=== PATIENT | female | born 1940 | race Caucasian/White ===

== ENCOUNTER → 2016-06-17 | Outpatient (CLI) | payer OTHER ==
[~2016-06-17] MED LIST: ASPI-435 PO; CALC-354 PO; FENO1TAB25 PO; GLC500 PO; LEVO75TA5 PO; LISI40TA PO; LPT/40 PO; METF1TAB53 PO; NVLGI7030 SC; VTMB12 PO; [UNRECOGNIZED DRUG - CODE] PO
--- NOTE | 2016-06-18 12:41 | MAMMOGRAPHY REPORT ---
BILATERAL DIGITAL SCREENING MAMMOGRAM WITH CAD: 06/17/2016 CLINICAL HISTORY: Routine screening. Patient has no complaints. TECHNIQUE: Bilateral CC and MLO views were obtained. Current study was also evaluated with a Comput er Aided Detection (CAD) system. COMPARISON: Comparison is made to exams dated: 06/14/2015 mammogram, 06/13/2014 mammogram, 06/10/2013 darling mogram, 06/08/2012 mammogram, 06/05/2011 mammogram, and 06/04/2010 mammogram - [facility]. BREAST COMPOSITION: There are scattered areas of fibroglandular density in both breasts. FINDINGS: There are scattered benign calcifications and diffuse bilateral rodlike secretory calcific ations. No suspicious mass, architectural distortion or cluster of suspicious microcalcifications i s seen. IMPRESSION: ACR BI-RADS CATEGORY 1: NEGATIVE There is no mammographic evidence of malignancy. A 1 year screening mammogram is recommended. The p atient will receive written notification of the results. Approximately 10% of breast cancers are not detected with mammography. A negative mammographic repor t should not delay biopsy if a clinically suggestive mass is present. Ana Aguilar M.D. ay/:06/17/2016 15:21:13 Waiter/Waitress Second Class: Janeth Santos, [facility] letter sent: Normal 1/2 BI-RADS Code: ACR BI-RADS Category 1: Negative
== END | disposition home or self-care (01) ==
LOC: C.MAMM 10:23
PROVIDERS: ATTEND Obstetrics & Gynecology
DX: Z12.31 Encounter for screening mammogram for malignant neoplasm of breast (principal)

== ENCOUNTER → 2016-11-29 | Outpatient (CLI) | payer OTHER ==
[2016-11-29 12:20] LABS: HEMATOCRIT 43.8 % (37-47); MEAN CELL VOLUME 87.1 fL (80-100); MEAN CORPUSCULAR HEMOGLOBIN 29.4 pg (25-34); MEAN CORPUSCULAR HGB CONC 33.8 g/dl (32-36); PLATELET COUNT 202 K/uL (130-400); RED BLOOD COUNT 5.03 M/uL (4.2-5.4); WHITE BLOOD COUNT 6.14 K/uL (4.8-10.8)
[2016-11-29 12:56] LABS: ESTIMATED AVERAGE GLUCOSE 209 mg/dl; HA1C FLAG Normal (Normal)
[2016-11-29 13:38] LABS: ALT/SGPT 70 U/L (12-78); BLOOD UREA NITROGEN 13 mg/dl (7-18); BUN/CREATININE RATIO 13.7 (10-20); CALCIUM 9.1 mg/dl (8.5-10.1); CARBON DIOXIDE 23 mmol/L (21-32); CHLORIDE 107 mmol/L (98-107); CHOLESTEROL 118 mg/dl (0-200); CREATININE 0.98 mg/dl (0.60-1.20); GLUCOSE 200 mg/dl (70-99); SODIUM 141 mmol/L (136-145)
[2016-11-29 13:49] LABS: ALB/GLOB RATIO 1.1 (0.9-2); ALKALINE PHOSPHATASE 56 U/L (45-117); AST/SGOT 51 U/L (15-37); CHOLESTEROL/HDL RATIO 3.6; HDL CHOLESTEROL 33 mg/dl; LDL CHOLESTEROL CALCULATED 41 mg/dl; TRIGLYCERIDES 219 mg/dl (0-150); VERY LOW DENSITY LIPOPROT CALC 44 mg/dl
== END ==
LOC: C.LABBFT 07:43
PROVIDERS: ATTEND Internal Medicine
DX: E11.65 Type 2 diabetes mellitus with hyperglycemia (principal)

== ENCOUNTER → 2017-04-29 | Outpatient (CLI) | payer OTHER ==
[2017-04-29 12:53] LABS: MEAN CELL VOLUME 87.8 fL (80-100); MEAN CORPUSCULAR HEMOGLOBIN 29.4 pg (25-34); MEAN CORPUSCULAR HGB CONC 33.5 g/dl (32-36); MEAN PLATELET VOLUME 12.6 fL (7.4-10.4); PLATELET COUNT 202 K/uL (130-400); WHITE BLOOD COUNT 6.89 K/uL (4.8-10.8)
[2017-04-29 13:34] LABS: ALT/SGPT 65 U/L (12-78); AST/SGOT 55 U/L (15-37); BLOOD UREA NITROGEN 18 mg/dl (7-18); CALCIUM 9.8 mg/dl (8.5-10.1); CARBON DIOXIDE 23 mmol/L (21-32); CHLORIDE 103 mmol/L (98-107); CREATININE 1.01 mg/dl (0.60-1.20); GLUCOSE 200 mg/dl (70-99); POTASSIUM 4.1 mmol/L (3.5-5.1); SODIUM 137 mmol/L (136-145)
[2017-04-29 13:49] LABS: ALKALINE PHOSPHATASE 52 U/L (45-117); CHOLESTEROL 105 mg/dl (0-200); CHOLESTEROL/HDL RATIO 3.5; HDL CHOLESTEROL 30 mg/dl; LDL CHOLESTEROL CALCULATED 42 mg/dl; TRIGLYCERIDES 167 mg/dl (0-150); VERY LOW DENSITY LIPOPROT CALC 33 mg/dl
== END | disposition home or self-care (01) ==
LOC: C.LABBFT 07:29
PROVIDERS: ATTEND Internal Medicine
DX: E78.5 Hyperlipidemia, unspecified (principal); E03.9 Hypothyroidism, unspecified

== ENCOUNTER → 2017-06-19 | Outpatient (CLI) | payer OTHER ==
--- NOTE | 2017-06-19 14:39 | MAMMOGRAPHY REPORT ---
BILATERAL DIGITAL SCREENING MAMMOGRAM TOMOSYNTHESIS WITH CAD: 06/19/2017 CLINICAL HISTORY: Routine screening. Patient has no complaints. TECHNIQUE: Breast tomosynthesis in addition to standard 2D mammography was performed. Current study was also evaluated with a Computer Aided Detection (CAD) system. COMPARISON: Comparison is made to exams dated: 06/17/2016 mammogram, 06/14/2015 mammogram, 06/13/2014 mamm ogram, 06/10/2013 mammogram, 06/08/2012 mammogram, and 06/05/2011 mammogram - [facility]. BREAST COMPOSITION: There are scattered areas of fibroglandular density in both breasts. FINDINGS: No suspicious masses, calcifications, or areas of architectural distortion are noted in ei ther breast. There has been no significant interval change compared to prior exams. Scattered bilater al benign-appearing calcifications are not significantly changed. Bilateral asymmetries are stable. IMPRESSION: ACR BI-RADS CATEGORY 2: BENIGN There is no mammographic evidence of malignancy. A 1 year screening mammogram is recommended. The pa tient will receive written notification of the results. Approximately 10% of breast cancers are not detected with mammography. A negative mammographic report should not delay biopsy if a clinically suggestive mass is present. Emelia Hernandez M.D. /:06/19/2017 12:34:35 Lace Mender: Georgina RIVERA)(Bela), [facility] letter sent: Normal 1/2 BI-RADS Code: ACR BI-RADS Category 2: Benign
== END | disposition home or self-care (01) ==
LOC: C.MAMM 09:59
PROVIDERS: ATTEND Obstetrics & Gynecology
DX: Z12.31 Encounter for screening mammogram for malignant neoplasm of breast (principal)

== ENCOUNTER → 2017-10-08 | Outpatient (CLI) | payer OTHER ==
[2017-10-08 12:29] LABS: HEMOGLOBIN A1C 7.7 % (4.5-5.6)
== END | disposition home or self-care (01) ==
LOC: C.LABBFT 07:14
PROVIDERS: ATTEND Internal Medicine Endocrinology, Diabetes & Metabolism
DX: E06.3 Autoimmune thyroiditis (principal); E11.9 Type 2 diabetes mellitus without complications; E55.9 Vitamin D deficiency, unspecified

== ENCOUNTER 2019-09-06 07:53 | Inpatient (IN) ==
--- NOTE | 2019-08-06 10:05 | Anesthesiology Consultation ---
Date of Service August 06, 2019 Assessment & Plan (1) Encounter for pre-operative examination: - Check BSG AM DOS Chart Review Chart Review: Acceptable Risk for Surgery and Patient NOT seen in Pre Admission Testing History Surgery Operation Date: 08/30/19 08:20 Proposed Procedures p Left Breast Lumpectomy with Needle Localization and Left [place] Lymph Node Biopsy - Emanuel Grijalva MD, FACS Height/Weight Height: 5 ft 3 in Weight: 59.421 kg Allergies Allergy/AdvReac Type Severity Reaction Status Date / Time No Known Allergies Allergy Verified 08/02/19 12:01 Medications Home Medications Medication Instructions Recorded Confirmed Last Taken lancets 33 gauge #100 ea 11/16/18 07/28/19 Unknown insulin aspart U-100 100 unit/mL See Rx Instructions .ROUTE 12/23/18 08/02/19 Unknown (3 mL) subcutaneous pen .COMPLEX #15 ml MDD 25 units aspirin 81 mg tablet,delayed 81 mg PO DAILY 02/21/19 08/02/19 Unknown release pen needle, diabetic 32 gauge x #100 ea 03/08/19 07/28/19 Unknown 5/32" atorvastatin 40 mg tablet 40 mg PO HS #90 tab 06/17/19 08/02/19 Unknown levothyroxine 75 mcg tablet 75 mcg PO DAILY #90 tab 06/17/19 08/02/19 Unknown lisinopril 40 mg tablet 40 mg PO DAILY #90 tab 06/17/19 08/02/19 Unknown metformin 1,000 mg tablet 1,000 mg PO DAILY #90 tab 06/17/19 08/02/19 Unknown blood sugar diagnostic See Rx Instructions .ROUTE 06/30/19 08/02/19 Unknown .COMPLEX #50 strip calcium carbonate-vitamin D3 1 tab PO BID 08/02/19 08/02/19 Unknown [Caltrate 600 plus D] chlorthalidone 25 mg tablet 12.5 mg PO QAM #15 tab 08/02/19 Unknown cholecalciferol (vitamin D3) 2,000 unit PO DAILY 08/02/19 08/02/19 Unknown [Vitamin D3] cyanocobalamin (vitamin B-12) 500 mcg PO DAILY 08/02/19 08/02/19 Unknown [Vitamin B-12] dulaglutide [Trulicity] 1.5 mg SQ WK 08/02/19 08/02/19 Unknown fenofibrate nanocrystallized 48 mg PO DAILY 08/02/19 08/02/19 Unknown [Tricor] insulin aspart U-100 [Novolog 5 unit SUBCUT QAM 08/02/19 08/02/19 Unknown Flexpen U-100 Insulin] insulin aspart U-100 [Novolog 10 unit SUBCUT QDD 08/02/19 08/02/19 Unknown Flexpen U-100 Insulin] insulin aspart U-100 [Novolog 10 unit SUBCUT QDL 08/02/19 08/02/19 Unknown Flexpen U-100 Insulin] insulin degludec [Tresiba 25 units SQ HS 08/02/19 08/02/19 Unknown FlexTouch U-100] metformin 500 mg PO DAILY 08/02/19 08/02/19 Unknown psyllium [Fiber Smooth] 2 tsp PO DAILY 08/02/19 08/02/19 Unknown sennosides [senna] 8.6 mg PO HS 08/02/19 08/02/19 Unknown Past Medical History Medical History Anxiety situational Breast cancer left Diabetes mellitus type 2, controlled IDDM Diverticulosis Dyslipidemia Essential (primary) hypertension Sergio's thyroiditis Hypothyroidism Past Family History Family History Brother COPD (chronic obstructive pulmonary disease) Diabetes Tobacco use Father Diabetes Epilepsy Prostate cancer Mother Glaucoma Hypertension Stroke syndrome Denies family history of Ovarian cancer Myocardial infarction Breast cancer Lung cancer Colorectal cancer Past Surgical History Surgical History H/O colonoscopy 11/16/2015 H/O wisdom tooth extraction History of breast biopsy left Social History Smoking Status: Never smoker Do You Dip or Chew Tobacco: No Hx Alcohol Use: No Hx Substance Use: No substance use type: does not use Testing Laboratory Results 08/03/19 WBC 9.96 H/H 13.8/41.9 PLATELETS 297 SODIUM 139 POTASSIUM 3.9 CHLORIDE 108 CO2 25 BUN 30 CREATININE 1.24 GLUCOSE 105 TSH 0.538 HGBA1C 6.4% Electrocardiogram Date: 08/04/19 SR with first degree AVB at 82bpm.
[~2019-09-06 07:53] MED LIST changes: -ASPI-435 PO; -CALC-354 PO; +CEFAZOLIN 2000MG 2,000 MG/15 ML SYR IV SCH; +DEXAMETHASONE SOD INJ 4 MG/ML VIAL ONE; -FENO1TAB25 PO; -GLC500 PO; -LEVO75TA5 PO; +LIDOCAINE HCL 2% 2 ML VIAL/AMP(20MG/ML) INFIL ONE; -LISI40TA PO; -LPT/40 PO; +LR 15ML/HR IV SCH; -METF1TAB53 PO; +MIDAZOLAM HCL 1 MG/ML 2ML VIAL ONE; -NVLGI7030 SC; +ONDANSETRON INJ 2 MG/ML 2 ML VIAL ONE; +PROPOFOL IV EMULSION 10 MG/ML 20 ML VIAL IV ONE; +ROCURONIUM BROMIDE 10 MG/ML 5 ML VIAL ONE; -VTMB12 PO; -[UNRECOGNIZED DRUG - CODE] PO; +fentaNYL citrate 100 MCG/2 ML VIAL ONE
--- NOTE | 2019-09-06 08:49 | History & Physical Bridge Note ---
Date of Service September 06, 2019 History & Physical Bridge Note I have examined the patient, reviewed the History & Physical and in the interval since the performance of the History & Physical I have noted the following changes of clinical significance: no changes noted
[2019-09-06] MEDS ORDERED: METHYLENE BLUE 0.5% 10 ML VIAL ONE (09:22)
[2019-09-06] MEDS ORDERED: BUPIVACAINE 0.5 % 5 MG/1 ML MPF 30ML VIAL ONE (09:22)
--- NOTE | 2019-09-06 09:49 | Nuclear Medicine Report ---
NM sentinel node inject only CLINICAL HISTORY: LEFT BREAST-INJECTION ONLY left breast carcinoma. COMPARISON STUDY: No previous studies for comparison. FINDINGS: A timeout was performed. Five periareolar intradermal injections were performed utilizing a total dose of 0.35 mCi technetium 99m Lymphoseek. The patient was sent to the operating room for intraoperative localization. IMPRESSION: Left breast lymphoscintigraphy was performed. ACT 112: Negative or not required by law. Electronically signed by: Imer Yu M.D. 09/06/2019 9:48 AM
[2019-09-06] MEDS ORDERED: PROMETHAZINE HCL 12.5 MG in SODIUM CHLORIDE 0.9% 50 ML IV PRN ×2 (09:59→13:22)
[2019-09-06] MEDS ORDERED: ePHEDrine sulfate 50 MG/ML AMP IV PRN (09:59)
[2019-09-06] MEDS ORDERED: fentaNYL citrate 100 MCG/2 ML VIAL IV PRN (09:59)
[2019-09-06] MEDS ORDERED: METOCLOPRAMIDE HCL INJ 5 MG/ML 2 ML VIAL IV PRN (09:59)
[2019-09-06] MEDS ORDERED: ATROPINE SULFATE 0.1 MG/ML 10ML SYR IV PRN (09:59)
[2019-09-06] MEDS ORDERED: ONDANSETRON INJ 2 MG/ML 2 ML VIAL IV PRN ×2 (09:59→13:22)
--- NOTE | 2019-09-06 11:29 | Post Operative Brief Note ---
PG Immediate Post Op with CF Date of Surgery September 06, 2019 Pre & Post Diagnosis Operation Date: 09/06/19 09:30 Pre-Op Diagnosis: Left Breast Lobular Cancer Post-Op Diagnosis: Left Breast Lobular Cancer I identified the patient and participated in the time-out.: Yes Procedure Operation Date: 09/06/19 09:30 Actual Procedures p Left Breast Mastectomy with [place] Lymph Node Biopsy (Injection Only)(Left) - Emanuel Grijalva MD, FACS Surgeon Emanuel Grijalva MD, FACS Precise Winder Stephy Null Estimated Blood Loss 10 Findings Consistent with Post-Op Diagnosis Specimens Specimen Description: A. Left [place] Lymph Node B. Left Breast Tissue Silk Lateral Drains [place] Drain
[2019-09-06] MEDS ORDERED: ACETAMINOPHEN 1,000 MG/100 ML VIAL IV ONE (11:30)
--- NOTE | 2019-09-06 11:48 | Operative Report (OR) ---
DATE OF OPERATION: 09/06/2019 NAME OF OPERATION: Left mastectomy with sentinel lymph node biopsy. PREOPERATIVE DIAGNOSIS: Left breast cancer. POSTOPERATIVE DIAGNOSIS: Left breast cancer. STAFF SURGEON: Emanuel Grijalva MD. PROVIDER RELATIONS SPECIALIST: Promise Null PA-C ANESTHESIA: General. DESCRIPTION OF PROCEDURE: The patient was brought in the operating room and placed on the operating table in supine position. Her left chest was prepped and draped in usual fashion. My medical staff assistant helped with prepping, draping, excision of the breast tissue and lymph node and closure of the wounds. Initially, an incision was made in the left axilla using a Neoprobe identifying sentinel lymph node, which was sent for frozen section. Frozen section was negative. During the frozen section, we did perform left mastectomy incising the breast from sternum to axilla in an elliptical fashion constructing superior and inferior breast flaps, dissecting the breast tissue away from the subcutaneous tissue down to the pectoralis muscle. Then, the breast tissue taken off the pectoralis muscle, taking the fascia. The breast was marked with a silk suture lateral. At this point, a #15 round [place] drain was placed into the chest wound, secured to skin using 3-0 nylon suture. The axillary incision closed using 2-0 plain for the deep tissue and 4-0 nylon for the skin. Her chest wound was closed with a subcutaneous 3-0 Vicryl and then subcuticular 4-0 Monocryl with Steri-Strips. Dressing applied and the patient was transferred to recovery room in stable condition. I attest to the content of the Intraoperative Record and any orders documented therein. Any exception s are noted below.
[2019-09-06] MEDS ORDERED: MoRPHine SULFATE 2 MG/ML CARP IV PRN ×2 (13:22)
[2019-09-06] MEDS ORDERED: ACETAMINOPHEN 325 MG TAB PO PRN (13:22)
[2019-09-06] MEDS ORDERED: HYDROCODONE/ACETAMOPHEN 5/325MG TAB PO PRN ×2 (13:22)
[2019-09-06] MEDS ORDERED: SENNA 8.8 MG/5 ML UDP PO PRN (13:22)
--- NOTE | 2019-09-06 13:37 | Anesthesiology Progress Note ---
Date of Service September 06, 2019 Anesthesia Post Procedure Vital Signs Vital Signs: Temp Pulse Pulse Resp BP BP Pulse Ox 09/06/19 13:25 76 18 161/81 H 96 09/06/19 12:50 81 21 150/82 H 97 09/06/19 12:40 78 18 144/85 H 96 09/06/19 12:30 36.6 C 77 15 143/80 H 96 09/06/19 12:20 79 17 157/85 H 97 09/06/19 12:10 73 13 158/90 H 98 09/06/19 12:00 74 12 154/85 H 96 09/06/19 11:51 36.7 C 77 18 148/94 H 100 09/06/19 09:39 36.7 C 90 20 172/92 H 94 Transfer of Care Handoff Completed per policy Notes Mental Status: alert / awake / arousable and participated in evaluation Patient Amnestic to Procedure: Yes Nausea / Vomiting: adequately controlled Pain: adequately controlled Airway Patency, RR, SpO2: stable & adequate BP & HR: stable & adequate Hydration State: stable & adequate Anesthetic Complications: no major complications apparent
[2019-09-06] MEDS ORDERED: SODIUM CHLORIDE 0.9% 1000ML 1,000 ML IV SCH (14:00)
[2019-09-06] MEDS ORDERED: GLUCAGON FOR INJ 1 MG VIAL SQ PRN (14:45)
[2019-09-06] MEDS ORDERED: GLUCOSE 10 TABS/TUBE PO PRN (14:45)
[2019-09-06] MEDS ORDERED: DEXTROSE 50% 50 ML SYRINGE IV PRN (14:45)
[2019-09-06] MEDS ORDERED: CARBOHYDRATES FOR HYPOGLYCEMIA PO PRN (14:45)
[2019-09-06] MEDS ORDERED: GLUCOSE 40% GEL 15 GM TUBE PO PRN (14:45)
[2019-09-06] MEDS: INSULIN ASPART 100 UNITS/ML 3 ML PEN SC SCH ×2 (17:29→20:59)
[2019-09-06] MEDS: CEFAZOLIN 1000MG 1,000 MG/7.5 ML SYR IV SCH (17:57)
--- NOTE | 2019-09-06 19:27 | Hospitalist Consultation ---
Date of Consultation September 06, 2019 Assessment & Plan (1) Breast cancer: s/p L mastectomy with Dr. Grijalva on 09/05 DVT proph, diet as per gen surg Pre-op Hb 13.8 (2) Type 2 diabetes mellitus, with long-term current use of insulin: SSI PRN Holding home meds until reliable PO A1c 6.4 (3) Hypothyroidism: continue home meds (4) Hypertension: continue home meds (5) Dyslipidemia: continue home meds (6) DVT prophylaxis: as per ortho Takes 81mg at baseline for prevention only, no hx of CVA/UT Has been on hold x5d History of Present Illness Attending Physician: Emanuel Grijalva MD, FACS History of Present Illness 78 y/o F who was admitted on 09/05 s/p L mastectomy with Dr. Grijalva. Pt is doing well post-op. Tolerating PO without issue. Pt denies fever, SOB, chest pain, abd pain, n/v/c/d, LE pain or swelling. Some pain related to incision site but manageable. Allergies Allergy/AdvReac Type Severity Reaction Status Date / Time No Known Allergies Allergy Verified 09/06/19 08:55 Home Medications Home Medications Medication Instructions Recorded Confirmed Type lancets 33 gauge #100 ea 11/16/18 07/28/19 Rx insulin aspart U-100 100 unit/mL See Rx Instructions .ROUTE 12/23/18 09/06/19 Rx (3 mL) subcutaneous pen .COMPLEX #15 ml MDD 25 units aspirin 81 mg tablet,delayed 81 mg PO DAILY 02/21/19 09/06/19 History release pen needle, diabetic 32 gauge x #100 ea 03/08/19 07/28/19 Rx 5/32" atorvastatin 40 mg tablet 40 mg PO HS #90 tab 06/17/19 09/06/19 Rx levothyroxine 75 mcg tablet 75 mcg PO DAILY #90 tab 06/17/19 09/06/19 Rx lisinopril 40 mg tablet 40 mg PO DAILY #90 tab 06/17/19 09/06/19 Rx metformin 1,000 mg tablet 1,000 mg PO DAILY #90 tab 06/17/19 09/06/19 Rx calcium carbonate-vitamin D3 1 tab PO BID 08/02/19 09/06/19 History [Caltrate 600 plus D] chlorthalidone 25 mg tablet 12.5 mg PO QAM #15 tab 08/02/19 09/06/19 Rx cholecalciferol (vitamin D3) 2,000 unit PO DAILY 08/02/19 09/06/19 History [Vitamin D3] cyanocobalamin (vitamin B-12) 500 mcg PO DAILY 08/02/19 09/06/19 History [Vitamin B-12] dulaglutide [Trulicity] 1.5 mg SQ WK 08/02/19 09/06/19 History fenofibrate nanocrystallized 48 mg PO DAILY 08/02/19 09/06/19 History [Tricor] insulin degludec [Tresiba 25 units SQ HS 08/02/19 09/06/19 History FlexTouch U-100] metformin 500 mg PO DAILY 08/02/19 09/06/19 History psyllium [Fiber Smooth] 2 tsp PO DAILY 08/02/19 09/06/19 History sennosides [senna] 8.6 mg PO HS 08/02/19 09/06/19 History blood sugar diagnostic See Rx Instructions .ROUTE 08/16/19 09/06/19 Rx .COMPLEX #50 strip Patient History Medical History Anxiety situational Breast cancer left Diabetes mellitus type 2, controlled IDDM Diverticulosis Dyslipidemia Essential (primary) hypertension Sergio's thyroiditis Hypothyroidism Surgical History H/O colonoscopy 11/16/2015 H/O wisdom tooth extraction History of breast biopsy left S/P mastectomy (09/06/19) Left Breast Mastectomy with [place] Lymph Node Biopsy Dr. 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 Beliefs That Will Affect Care: None marital status: Single Current Living Situation: Alone current occupational status: employed Other Information That Helps Us Care for You: No Feels Safe at Home: Yes Safety Concerns: Feels Safe At This Time Smoking Status: Never smoker Do You Dip or Chew Tobacco: No ; Second Hand Exposure: Yes (hx) ; Tobacco Cessation Education Requested by Patient: No Hx Alcohol Use: Yes Alcohol Intake Frequency: Weekly Hx Substance Use: No Dental Care, Regularly: Yes Physical Activity Frequency: Daily Seatbelt Use: always Sunscreen Use: Yes Review of Systems Review of Systems: Pertinent positives and negatives reviewed in HPI--all others negative Physical Exam Constitutional: WD/WN, vitals as above Eyes: normal visual samayoa by confrontation and + anicteric sclerae Neck: normal visual inspection and trachea midline Respiratory: normal respiratory effort, lungs clear to auscultation Cardiovascular: Rate/Rhythm: regular rate and regular rhythm Gastrointestinal (Abdomen): Inspection/Auscultation: abdomen not distended Percussion/Palpation: abdomen soft; abdomen nontender Musculoskeletal: Head/Neck/Chest: normocephalic and head atraumatic negative for edema, peripheral pulses intact Skin: no rashes, warm and dry Neurologic: awake; not confused Speech / Cognition: normal speech Psychiatric: A+Ox3, euthymic affect Results & Data Results & Data ([facility]) Vital Signs (Past 12 Hours) Vital Signs Temp Pulse Pulse Resp BP BP Pulse Ox 09/06/19 19:07 36.6 C 93 H 18 156/76 H 96 09/06/19 16:11 36.8 C 82 18 153/73 H 94 09/06/19 15:10 36.5 C 85 16 165/85 H 97 09/06/19 14:07 82 18 171/88 H 99 09/06/19 13:25 76 18 161/81 H 96 09/06/19 12:50 81 21 150/82 H 97 09/06/19 12:40 78 18 144/85 H 96 09/06/19 12:30 36.6 C 77 15 143/80 H 96 09/06/19 12:20 79 17 157/85 H 97 09/06/19 12:10 73 13 158/90 H 98 09/06/19 12:00 74 12 154/85 H 96 09/06/19 11:51 36.7 C 77 18 148/94 H 100 09/06/19 09:39 36.7 C 90 20 172/92 H 94 PG Care Time/CCT Total # of Minutes Spent Total Time Spent with Patient: Total time spent is greater than 50% in coordination of care (as documented) at patient's floor/unit and/or counseling patient: Coding Level of Care Code 20688 Inpt Consult Level 4 Diagnoses Breast cancer C50.919 Type 2 diabetes mellitus, with long-term current use of insulin E11.9; Z79.4 Hypothyroidism E03.9 Hypertension I10 Dyslipidemia E78.5 DVT prophylaxis Z29.9
[2019-09-06] MEDS: ATORVASTATIN 40 MG TAB PO SCH (20:58)
[2019-09-07] MEDS: CEFAZOLIN 1000MG 1,000 MG/7.5 ML SYR IV SCH ×3 (01:54→20:46)
[2019-09-07] MEDS: LEVOTHYROXINE SODIUM 75 MCG TABLET PO SCH (06:21)
--- NOTE | 2019-09-07 06:23 | Surgery Progress Note ---
Date of Service September 07, 2019 Assessment & Plan (1) H/O mastectomy: doing well drain expected no evidence of acute bleeding wound care plan for d/c tomorrow- visiting nurse- pt lives alone Results & Data Vital Signs (Past 12 Hours) Vital Signs Temp Pulse Resp BP BP Pulse Ox 09/07/19 03:54 36.7 C 89 16 168/81 H 95 09/06/19 23:00 36.6 C 83 18 160/82 H 96 09/06/19 19:07 36.6 C 93 H 18 156/76 H 96 PG Care Time/CCT Total # of Minutes Spent Total Time Spent with Patient: Total time spent is greater than 50% in coordination of care (as documented) at patient's floor/unit and/or counseling patient: Coding Level of Care Code None Diagnoses H/O mastectomy Z90.10
[2019-09-07] MEDS ORDERED: INSULIN GLARGINE SOLOSTAR 100 UNITS/ML 3 ML PEN SC ONE (07:41)
[2019-09-07] MEDS: INSULIN ASPART 100 UNITS/ML 3 ML PEN SC SCH ×4 (08:21→20:58)
[2019-09-07] MEDS: lisinopriL 40 MG TAB PO SCH (08:22)
[2019-09-07] MEDS: CHOLECALCIFEROL 1,000 UNITS 25 MCG TAB PO SCH (08:22)
[2019-09-07] MEDS: HEPARIN SOD 5,000 UNIT/0.5 ML VIAL SQ SCH ×2 (08:23→20:58)
[2019-09-07 08:31] LABS: Hematocrit (blood only) 39.8 % (37-47); Hemoglobin 13.2 g/dL (12.0-16.0); Mean Corpuscular Hemoglobin 29.1 pg (25-34); Mean Corpuscular Hgb Conc 33.2 g/dL (32-36); Mean Corpuscular Volume 87.9 fL (80-100); Mean Platelet Volume 11.4 fL (7.4-10.4); Platelet Count 252 K/uL (130-400); RDW Coefficient of Variation 14.1 % (11.5-14.5); RDW Standard Deviation 45.5 fL (36.4-46.3); Red Blood Count 4.53 M/uL (4.2-5.4); White Blood Count 11.32 K/uL (4.8-10.8)
[2019-09-07] MEDS ORDERED: CHLORTHALIDONE 25 MG TAB PO SCH (09:00)
[2019-09-07 09:02] LABS: BUN Creatinine Ratio 15.6 (10-20); Calcium 9.1 mg/dl (8.5-10.1); Creatinine Clr Calc Pharmacy 28.8 ml/min; Est GFR (African American) 44.3; Est GFR (Non-African American) 38.2; Potassium 3.8 mmol/L (3.5-5.1)
[2019-09-07] MEDS: AMLODIPINE BESYLATE 5 MG TAB PO SCH (09:25)
--- NOTE | 2019-09-07 14:10 | Hospitalist Progress Note ---
Date of Service September 07, 2019 Assessment & Plan (1) Breast cancer: s/p L mastectomy with Dr. Grijalva on 09/05 Pain management as per general surgery (2) Type 2 diabetes mellitus, with long-term current use of insulin: Home regimen: metformin 1000mg daily, Trulicity (takes on Friday therefore still active), NovoLog 5/10/10 units, Tresiba 25 units HS; therefore total 50 units insulin daily. HbA1c 6.4 with no known hypoglycemic events therefore plan to discharge on same regimen although some concern with Carlos Eduardo given her cancer diagnosis and current weight. Start Lantus 15 units now then 20 units HS (unless having significant hypoglycemic episodes, then will change as necessary). Continue Novolog aim 120-140, correction 15, carb ratio 5. T2DM diet (3) Hypothyroidism: TSH 0.538 in Jul, continue levothyroxine 75 mcg daily (4) Hypertension: Patient actually previously stopped chlorthalidone at last PCP visit (mainly due to hypercalcemia) pre-op therefore will discontinue this on her home med list. Recommend staying off chlorthalidone given renal function and elevated BUN in addition. Start amlodipine 5mg PO QAM due to persistently elevated BP in addition to her usual lisinopril. Likely will need new prescription of amlodipine on discharge. (5) Dyslipidemia: continue atorvastatin and fenofibrate (6) DVT prophylaxis: as per general surgery Admission and Anticipated Discharge Date Admission Date: September 06, 2019 No ongoing medical needs that require increased hospitalization other than that for the surgery. Thank you for the consult we will continue to see while she is here. Subjective Patient sitting out in the chair. Doing well with pain under control post operatively. She informs me plan is for possible discharge tomorrow. No acute events overnight. No concerns or questions at this time. She does inform me the chlorthalidone was previously stopped at her last visit with her PCP due to high calcium levels which matches her pre-op note at that time. Review of Systems Review of Systems: All systems reviewed & are unremarkable except as noted in HPI & below Physical Exam Constitutional: WD/WN, vitals as above Eyes: + anicteric sclerae; normal pupil size ENMT: external ear and nose normal, oropharynx normal Neck: normal visual inspection and trachea midline Respiratory: normal respiratory effort, lungs clear to auscultation Cardiovascular: Rate/Rhythm: regular rate and regular rhythm Heart Sounds: no murmur Extremities: normal capillary refill; no pedal edema Gastrointestinal (Abdomen): Inspection/Auscultation: abdomen not distended Percussion/Palpation: abdomen soft; abdomen nontender Skin: no rashes, warm and dry Neurologic: awake; not confused Speech / Cognition: normal speech Psychiatric: A+Ox3, euthymic affect Results & Data Results & Data ([facility]) Vital Signs (Past 12 Hours) Vital Signs Temp Pulse Resp BP BP Pulse Ox 09/07/19 11:39 36.4 C L 72 18 165/75 H 98 09/07/19 08:55 168/85 H 09/07/19 08:37 36.5 C 78 16 182/92 H 96 09/07/19 03:54 36.7 C 89 16 168/81 H 95 PG Care Time/CCT Total # of Minutes Spent Total Time Spent with Patient: Total time spent is greater than 50% in coordination of care (as documented) at patient's floor/unit and/or counseling patient: Coding Level of Care Code 78368 Subseq Hosp Care Lvl 2 Diagnoses Breast cancer C50.812; Z17.0 Breast location: overlapping sites of breast Estrogen receptor status: positive Patient sex: female Laterality: left Type 2 diabetes mellitus, with long-term current use of insulin E11.42; Z79.4 Diabetes mellitus complication status: with neurologic complications Diabetes mellitus complication detail: with polyneuropathy Hypothyroidism E03.8; E06.3 Hypothyroidism type: due to Sergio's thyroiditis Hypertension I10 Hypertension type: essential hypertension Dyslipidemia E78.5 DVT prophylaxis Z29.9 (1) Breast cancer Breast location: overlapping sites of breast Estrogen receptor status: positive Patient sex: female Laterality: left Qualified Code(s): C50.812 - Malignant neoplasm of overlapping sites of left female breast; Z17.0 - Estrogen receptor positive status [ER+] (2) Type 2 diabetes mellitus, with long-term current use of insulin Diabetes mellitus complication status: with neurologic complications Diabetes mellitus complication detail: with polyneuropathy Qualified Code(s): E11.42 - Type 2 diabetes mellitus with diabetic polyneuropathy; Z79.4 - FPC (current) use of insulin (3) Hypothyroidism Hypothyroidism type: due to Sergio's thyroiditis Qualified Code(s): E03.8 - Other specified hypothyroidism; E06.3 - Autoimmune thyroiditis (4) Hypertension Hypertension type: essential hypertension Qualified Code(s): I10 - Essential (primary) hypertension
[2019-09-07] MEDS: ATORVASTATIN 40 MG TAB PO SCH (20:46)
[2019-09-07] MEDS ORDERED: INSULIN GLARGINE SOLOSTAR 100 UNITS/ML 3 ML PEN SC SCH ×2 (21:00)
[2019-09-08 06:36] LABS: Creatinine Clr Calc Pharmacy 34.9 ml/min; Est GFR (African American) 55.7; Est GFR (Non-African American) 48.1
[2019-09-08] MEDS: LEVOTHYROXINE SODIUM 75 MCG TABLET PO SCH (06:40)
[2019-09-08] MEDS: CHOLECALCIFEROL 1,000 UNITS 25 MCG TAB PO SCH (08:16)
[2019-09-08] MEDS: AMLODIPINE BESYLATE 5 MG TAB PO SCH (08:16)
[2019-09-08] MEDS: lisinopriL 40 MG TAB PO SCH (08:16)
[2019-09-08] MEDS: CEFAZOLIN 1000MG 1,000 MG/7.5 ML SYR IV SCH (08:17)
[2019-09-08] MEDS: INSULIN ASPART 100 UNITS/ML 3 ML PEN SC SCH (08:20)
[2019-09-08] MEDS: HEPARIN SOD 5,000 UNIT/0.5 ML VIAL SQ SCH (08:20)
--- NOTE | 2019-09-08 09:03 | Discharge Summary (DS) ---
PRINCIPAL DIAGNOSIS: Left breast cancer. PROCEDURES: The patient underwent left mastectomy with sentinel lymph node biopsy. HISTORY OF PRESENT ILLNESS: The patient is a 78-year-old female with biopsy proven left breast cancer in 2 sites of her left breast. HOSPITAL COURSE: She was brought in the hospital on 09/06/2019 where she underwent left mastectomy with sentinel lymph node biopsy. The sentinel lymph node was negative. She has done quite well in the hospital and is felt stable for discharge home today to be followed in the [facility] within 1 week. She does have a drain in place, which will be removed.
== END 2019-09-08 10:47 | disposition home or self-care (01) | DRG 581 ==
LOC: ASU 07:53 → 3E 11:30